=== PATIENT | female | born 1940 | race Caucasian/White ===

== ENCOUNTER → 2017-01-13 | Outpatient (CLI) | payer MEDICARE, OTHER ==
[~2017-01-13] MED LIST: /WARF25TA OR; /WARF5TA OR; ACET65TA OR; ALPR0.5T3 PO; AMBI5TAB PO; ATOR1TAB21 PO; CIPR500T3 PO; DRIS50002 PO; FLAG500T PO; LEVO100T OR; LEVO100T5 PO; LISI40TA OR; MECL12.575 PO; PARO40TA87 PO; PEPC1TAB4 PO; PERC5TAB8 OR; PERC7.5T8 OR; PROZ40CA OR; RANI150C OR; SIMV20TA2 OR; TELM1TAB2 PO; TESS100C PO; TORS20TA2 PO; [UNRECOGNIZED DRUG - CODE] OR
[2017-01-13 19:36] LABS: ALBUMIN 2.2 GM/DL (3.2-5.2); ALBUMIN/GLOBULIN RATIO 0.67 (1.00-1.93); BILIRUBIN,TOTAL 0.5 MG/DL (0.2-1.0); CREATININE FOR GFR 0.97 MG/DL (0.55-1.02); GLOMERULAR FILTRATION RATE 59.3 (>39); POTASSIUM SERUM 3.5 MEQ/L (3.5-5.1); TOTAL PROTEIN 5.5 GM/DL (6.4-8.2)
[2017-01-13 19:39] LABS: BASO % 0.4 % (0.0-1.0); EOS # 0.4 K/mm3 (0.0-0.50); EOS % 3.3 % (0.0-3.0); LYMPH # 2.2 K/mm3 (1.5-4.5); LYMPH % 18.1 % (24.0-44.0); MEAN CORPUSCULAR HEMOGLOBIN 27.5 pg (27.0-33.0); MEAN CORPUSCULAR HGB CONC 31.4 g/dl (32.0-36.5); MEAN CORPUSCULAR VOLUME 87.6 fl (80.0-96.0); MONO # 0.6 K/mm3 (0.0-0.8); NEUTROPHILS # 8.2 K/mm3 (1.8-7.7); NEUTROPHILS % 72.1 % (36.0-66.0); RED CELL DISTRIBUTION WIDTH 14.1 % (11.5-14.5); WHITE BLOOD COUNT 11.3 K/mm3 (4.0-10.0)
== END ==
LOC: M LAB 18:11
PROVIDERS: ATTEND Physician Assistant Medical
DX: R10.84 Generalized abdominal pain (principal)

== ENCOUNTER → 2017-01-17 | Outpatient (CLI) | payer MEDICARE, OTHER ==
[~2017-01-17] MED LIST changes: +GASTROGRAFIN SOLUTION 30ML (Q9963) As Ordered ONE; +ISOVUE-370 76% 100ML VIAL (Q9967) As Ordered ONE
--- NOTE | 2017-01-17 12:04 | REP ---
Clinical: Abdominal pain with physical examination findings to suggest colovesical fistula. Technique: Axial contrast enhanced images from the lung bases to the pubic symphysis using oral and 100 ml Isovue 370 intravenous contrast material with delayed images of the pelvis. Contrast enema was declined. Comparison: 09/10/2016. Findings: Mural thickening and pericolonic stranding with scattered diverticula involves the midsigmoid colon which is inseparable from the bladder and a small focus of nondependent gas is noted within the bladder which is highly suggestive of colovesical fistula given the lack of recent Tamayo catheterization. The remainder of the small and large bowel is grossly unremarkable. Liver, spleen, pancreas, bilateral adrenal glands are normal. Kidneys demonstrate cortical atrophic changes and subcentimeter right renal cyst without hydronephrosis or nephrolithiasis. The gallbladder demonstrates cholelithiasis with subtle inflammatory type changes at the base/neck of the gallbladder (images 46 - 52) which may reflect sequelae of intermittent obstruction and cholecystitis. No obvious pericholecystic fluid, intrahepatic biliary ductal dilatation or obstructing choledocholiths is identified by current CT. The enteric system is as described above. Element of superimposed acute on chronic sigmoid diverticulitis cannot be excluded. The patient is status post hysterectomy. No pelvic fluid or ascites. No free air. No obvious adenopathy. Abdominal aorta is without aneurysm or dissection. Musculoskeletal structures demonstrate degenerative changes. Impression: 1. Acute / chronic inflammatory changes related to sigmoid diverticulitis as described above are inseparable from and contiguous with the bladder along with small amount of gas in the nondependent portion of the bladder is highly suspicious for colovesical fistula. 2. Continued acute on chronic diverticulitis involving the sigmoid colon cannot be excluded. 3. Cholelithiasis and possible sequelae of prior acute cholecystitis may warrant right upper quadrant ultrasound examination. Signed by Jay Marquez MD 01/17/2017 11:55 A
== END ==
LOC: M RAD 08:10
PROVIDERS: ATTEND Physician Assistant Medical
DX: R10.9 Unspecified abdominal pain (principal)
CPT/HCPCS: 74177; Q9963; Q9967

== ENCOUNTER → 2017-02-28 | Outpatient (CLI) | payer MEDICARE, OTHER ==
[~2017-02-28] MED LIST changes: +ALEV220T26 PO; -GASTROGRAFIN SOLUTION 30ML (Q9963) As Ordered ONE; -ISOVUE-370 76% 100ML VIAL (Q9967) As Ordered ONE
[2017-02-28 14:32] LABS: ANION GAP 7 MEQ/L (8-16); BLOOD UREA NITROGEN 17 MG/DL (7-18); CALCIUM LEVEL 8.7 MG/DL (8.8-10.2); CARBON DIOXIDE LEVEL 26 MEQ/L (21-32); CHLORIDE LEVEL 110 MEQ/L (98-107); CREATININE FOR GFR 0.94 MG/DL (0.55-1.02); GLOMERULAR FILTRATION RATE > 60.0 (>39); GLUCOSE, FASTING 109 MG/DL (83-110); POTASSIUM SERUM 4.2 MEQ/L (3.5-5.1); SODIUM LEVEL 143 MEQ/L (136-145)
--- NOTE | 2017-02-28 15:31 | ECGEPIP ---
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 No prior ECG available for comparison at the time of interpretation. Electronically Signed On 02-28-2017 15:31:17 EDT by Kike Saldana
== END ==
LOC: M LAB 13:43
PROVIDERS: ATTEND Surgery
DX: I10 Essential (primary) hypertension (principal)

== ENCOUNTER → 2017-05-10 | Outpatient (REF) | payer MEDICARE, OTHER ==
[2017-05-10 17:59] LABS: INR 1.13
[2017-05-10 18:27] LABS: BASO % 0.4 % (0.0-1.0); EOS # 0.3 K/mm3 (0.0-0.50); EOS % 3.7 % (0.0-3.0); LYMPH # 1.7 K/mm3 (1.5-4.5); LYMPH % 18.9 % (24.0-44.0); MEAN CORPUSCULAR HEMOGLOBIN 29.6 pg (27.0-33.0); MEAN CORPUSCULAR HGB CONC 32.5 g/dl (32.0-36.5); MEAN CORPUSCULAR VOLUME 91.3 fl (80.0-96.0); MONO # 0.5 K/mm3 (0.0-0.8); MONO % 5.9 % (0.0-5.0); NEUTROPHILS # 6.4 K/mm3 (1.8-7.7); NEUTROPHILS % 70.1 % (36.0-66.0); RED CELL DISTRIBUTION WIDTH 13.4 % (11.5-14.5); WHITE BLOOD COUNT 9.1 K/mm3 (4.0-10.0)
[2017-05-10 18:38] LABS: ALBUMIN 3.6 GM/DL (3.2-5.2); ALBUMIN/GLOBULIN RATIO 1.24 (1.00-1.93); BILIRUBIN,TOTAL 0.7 MG/DL (0.2-1.0); CALCIUM LEVEL 8.9 MG/DL (8.8-10.2); CREATININE FOR GFR 1.3 MG/DL (0.55-1.02); GLOMERULAR FILTRATION RATE 42.2 (>39); POTASSIUM SERUM 4.9 MEQ/L (3.5-5.1); TOTAL PROTEIN 6.5 GM/DL (6.4-8.2)
== END ==
LOC: M LABDRAW1 17:02
PROVIDERS: ATTEND Physician Assistant Medical
DX: N32.1 Vesicointestinal fistula (principal)

== ENCOUNTER → 2017-05-10 | Outpatient (CLI) | payer MEDICARE, OTHER ==
--- NOTE | 2017-05-11 08:52 | ECGEPIP ---
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
== END ==
LOC: M EKG 15:17 → M LAB 15:17
PROVIDERS: ATTEND Physician Assistant Medical
DX: Z01.818 Encounter for other preprocedural examination (principal); N32.1 Vesicointestinal fistula

== ENCOUNTER → 2017-05-20 | Outpatient (REF) | payer MEDICARE, OTHER ==
[2017-05-20 13:28] LABS: CALCIUM LEVEL 9.2 MG/DL (8.8-10.2); CREATININE FOR GFR 1.21 MG/DL (0.55-1.02); GLOMERULAR FILTRATION RATE 45.8 (>39); POTASSIUM SERUM 4.6 MEQ/L (3.5-5.1)
== END ==
LOC: M LABDRAW1 12:48
PROVIDERS: ATTEND Physician Assistant Medical
DX: M32.11 Endocarditis in systemic lupus erythematosus (principal)

== ENCOUNTER 2017-06-07 06:25 | Inpatient (IN) | payer MEDICARE, OTHER ==
--- NOTE | 2017-06-06 16:40 | HPE ---
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 Unfortunately, because of family issues, she has been able to pursue a sigmoid colectomy; now presents for additional recommendations. She has does not have any fevers or chills but does still have some air, as well as particulate matter when she urinates. She has not complained of diarrhea or constipation issues. Does have some suprapubic discomfort and pain, but this has been relatively stable. She has been treated with antibiotics multiple times over the last year. Her last CT scan was in December of this year. Most recent complete blood count (CBC) was 9.1. PAST MEDICAL HISTORY: Significant for history of diverticulitis, history of hypercholesterolemia, history of hypertension, a period of anxiety, history of depression, history of thyroid disease, status post hysterectomy, status post knee replacement. Medications include the following: Alprazolam, atorvastatin, Pepcid, Synthroid paroxetine, telmisartan, torsemide, vitamin D and Zolpidem. PHYSICAL EXAMINATION: Reveals a 77-year-old female who looks stated age. HEENT is unremarkable. NECK: Supple without adenopathy. LUNGS: Clear to auscultation without crackles, wheezes or rhonchi. HEART: Regular without murmur. ABDOMEN: Soft, nondistended. She has minimal discomfort in the suprapubic area without significant guarding or rebound. EXTREMITIES: Warm and well-perfused. 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 Since this has been going on, she has been on intermittent antibiotics but has not been on antibiotics until last week when I put her on some prophylactic antibiotics of Cipro, Flagyl over the last week in preparation for this operation to help decrease the likelihood of postoperative infection. At this point, we have plans for a laparoscopic sigmoid colectomy for her. Risks, as well as benefits have been discussed with her at length; those including but not limited to infection, bleeding, damage to surrounding structures including bowel, bladder, nerves, vessels, ureter, kidney, spleen, pancreas and more importantly possibly need for ostomy, as well as possible need for open operative intervention. She understands; and at that this time, would like to proceed with operative intervention, understanding that her risk of perioperative infection is much higher given her enterovesical fistula which by its presence leads to a contaminated field. The patient will have a postoperative Tamayo in place for several days to allow for the enterovesical fistula to resolve. Will plan on a and mechanical, as well as antibiotics bowel prep, make her nothing by mouth, IV fluids, Tamayo catheter, TEDs, sequential perioperatively.
[~2017-06-07] VITALS: Ht 152.4 cm; Wt 77.6 kg
[2017-06-07] VITALS (7 sets, daily range): BP systolic 144–190; BP diastolic 63–88
[~2017-06-07 06:25] MED LIST changes: +LR 1,000 ML IV ONE; +PARO40TA3 PO; -PARO40TA87 PO
[2017-06-07] MEDS ORDERED: ERTAPENEM SODIUM 1 GM in NS MINI-BAG PLUS 50 ML IV ONE ×2 (06:45→12:30)
[2017-06-07] MEDS ORDERED: GLUCAGON FOR INJ 1 MG VIAL (J1610) As Ordered ONE (07:01)
[2017-06-07] MEDS ORDERED: BUPIVACAINE/EPIN 0.25% 30 ML VIAL As Ordered ONE (07:01)
[2017-06-07] MEDS ORDERED: fentaNYL 250 MCG/5 ML INJECTION (J3010) As Ordered ONE (07:19)
[2017-06-07] MEDS ORDERED: MIDAZOLAM INJ 2 MG/2 ML VIAL (J2250) As Ordered ONE (07:19)
[2017-06-07] MEDS ORDERED: PROPOFOL 200 MG/20 ML VIAL As Ordered ONE (07:19)
[2017-06-07] MEDS ORDERED: ROCURONIUM BROMIDE 50 MG/5 ML VIAL/SYRINGE As Ordered ONE ×3 (07:19→09:47)
[2017-06-07] MEDS ORDERED: LIDOCAINE 2% INJ 100 MG/5 ML SDV (FOR ANES.) As Ordered ONE (07:19)
[2017-06-07] MEDS ORDERED: SCOPOLAMINE 1.5 MG TRANSDERMAL As Ordered ONE (07:27)
[2017-06-07] MEDS ORDERED: SCOPOLAMINE 1.5 MG TRANSDERMAL TOP ONE (08:00)
[2017-06-07] MEDS ORDERED: LR 1,000 ML IV ONE (08:00)
[2017-06-07] MEDS ORDERED: dexameTHASONE 4 MG/ML 1ML VIAL (J1100) As Ordered ONE (08:35)
[2017-06-07] MEDS ORDERED: PHENYLephrine HCL 500 MCG/5 ML (100MCG/ML) SYRINGE (J2370) As Ordered ONE (08:52)
[2017-06-07] MEDS ORDERED: ePHEDrine SULFATE 25 MG/5 ML(5MG/ML) SYRINGE As Ordered ONE ×2 (08:52→11:22)
[2017-06-07] MEDS ORDERED: NEOSTIGMINE 1MG/ML 5 ML SYRINGE (J2710) As Ordered ONE (08:52)
[2017-06-07] MEDS ORDERED: GLYCOPYRROLATE INJ 0.2 MG/ML 2 ML VIAL As Ordered ONE (08:52)
[2017-06-07] MEDS ORDERED: HYDROmorphone HCL 2 MG/ML 1ML VIAL (J1170) As Ordered ONE (08:52)
[2017-06-07] MEDS ORDERED: LABETALOL HCL 100 MG/20 ML VIAL As Ordered ONE (08:59)
[2017-06-07] MEDS ORDERED: BUPIVACAINE LIPOSOME/PF 1.3% 20 ML VIAL (13.3MG/ML)(EXPAREL) As Ordered ONE (11:53)
[2017-06-07] MEDS ORDERED: BUPIVACAINE HCL 0.25% 30 ML VIAL As Ordered ONE (11:53)
[2017-06-07] MEDS ORDERED: SUGAMMADEX SODIUM 500 MG/5 ML VIAL (BRIDION) As Ordered ONE (11:59)
[2017-06-07] MEDS ORDERED: zolPIDEM TARTRATE 10MG TAB PO PRN (12:30)
[2017-06-07] MEDS ORDERED: HYDROmorphone HCL 1 MG/ML SYRINGE (J1170) IV PRN (12:30)
[2017-06-07] MEDS ORDERED: IPRATROPIUM 0.5MG/ALBUTEROL 2.5MG INH SOL UD 3ML (DUONEB)(J7620) NEB PRN (12:30)
[2017-06-07] MEDS ORDERED: METOCLOPRAMIDE INJ 10MG/2ML VIAL (J2765) IV PRN ×2 (12:30→13:00)
[2017-06-07] MEDS ORDERED: PROMETHAZINE INJ 25 MG/ML VIAL (J2550) IV PRN (12:30)
[2017-06-07] MEDS: HYDROmorphone HCL 1 MG/ML SYRINGE (J1170) IV PRN ×7 (12:45→23:14)
[2017-06-07] MEDS ORDERED: ONDANSETRON 4MG/2ML VIAL (J2405) IV PRN (13:00)
[2017-06-07] MEDS: IPRATROPIUM 0.5MG/ALBUTEROL 2.5MG INH SOL UD 3ML (DUONEB)(J7620) NEB SCH ×2 (14:00→20:00)
[2017-06-07] MEDS: ALVIMOPAN 12 MG CAPSULE (ENTEREG) PO SCH ×3 (15:33→20:27)
[2017-06-07] MEDS: LR 80 ML IV SCH (15:34)
[2017-06-07] MEDS: LR 1,000 ML IV SCH ×2 (15:34→18:06)
[2017-06-07] MEDS: PANTOPRAZOLE 40MG INJ (PROTONIX) (C9113) IV SCH (16:02)
[2017-06-07] MEDS: ONDANSETRON 4MG/2ML VIAL (J2405) IV PRN (20:11)
[2017-06-08] MEDS: IPRATROPIUM 0.5MG/ALBUTEROL 2.5MG INH SOL UD 3ML (DUONEB)(J7620) NEB SCH ×4 (01:40→19:36)
[2017-06-08 02:00] VITALS: BP 160/71
[2017-06-08] MEDS: LR 1,000 ML IV SCH ×4 (03:35→23:43)
[2017-06-08 05:35] LABS: MEAN CORPUSCULAR HEMOGLOBIN 29.5 pg (27.0-33.0); MEAN CORPUSCULAR HGB CONC 33.8 g/dl (32.0-36.5); MEAN CORPUSCULAR VOLUME 87.2 fl (80.0-96.0); RED CELL DISTRIBUTION WIDTH 13.9 % (11.5-14.5); WHITE BLOOD COUNT 20.5 K/mm3 (4.0-10.0)
[2017-06-08 05:45] LABS: CALCIUM LEVEL 8.1 MG/DL (8.8-10.2); CREATININE FOR GFR 1.51 MG/DL (0.55-1.02); GLOMERULAR FILTRATION RATE 35.5 (>39); POTASSIUM SERUM 3.6 MEQ/L (3.5-5.1)
[2017-06-08 06:00] VITALS: BP 164/72
[2017-06-08] MEDS: ONDANSETRON 4MG/2ML VIAL (J2405) IV PRN (06:53)
--- NOTE | 2017-06-08 07:49 | RO ---
DATE OF PROCEDURE: 06/07/2017 PREOPERATIVE DIAGNOSIS: Diverticulosis. POSTOPERATIVE DIAGNOSIS: Diverticulosis. SURGERY PERFORMED: Cystoscopy, plus bilateral ureteral stent placements, 5-[place] Pollack catheters. SURGEON: Braden Tolentino MD UNIFIED COMMUNICATIONS ARCHITECT: None. ANESTHESIA: General. FINDINGS: Normal bladder with bilateral ureters. Ureteral orifices patent. COMPLICATIONS: None. ESTIMATED BLOOD LOSS: N/A. HISTORY OF PRESENT ILLNESS: 77-year-old female patient with a history of diverticulosis, diverticulitis and a colovesical fistula. For this reason, she is being taken to the operating room (OR) for a colon resection and laparoscopic colectomy. We were consulted for placing bilateral ureteral stents. For this reason, she was consented for cystoscopy, plus bilateral ureteral stent placement prior to the laparoscopic colectomy. PROCEDURE DESCRIPTION: In a patient under general anesthesia in supine modified low lithotomy position after prepping and draping the area of concern, which included the entire genitalia and abdomen, we started by introducing a cystoscope, 21-[place] in diameter with 30-degree lens. The urethra and bladder neck were totally normal. The bladder had no tumors, no stones, no foreign objects. Both ureteral orifices were seen and patent. We passed a 5-[place] Pollack catheter toward the right ureteral orifice and it loaded up easily up to the kidney. We then removed the cystoscope, left the Pollack catheter behind and then reintroduced the cystoscope through the urethra, identified the left ureteral orifice and passed another 5-Pollack catheter up to the kidney. We then removed the cystoscope and passed a 16-[place] Tamayo catheter and placed the balloon to 10 mL. We then connected the ureteral catheter connectors and then ligated both Pollack catheters to the Tamayo catheter to actively secure them in position so they do not move. This patient has a Tamayo catheter tube drainage bag and two Pollack catheters draining to a connector and draining to a bag. PLAN: The patient will be now having surgery for her diverticulosis and vesicle colonic fistula laparoscopically by Dr. Shabazz. After the procedure, he will take the Pollack catheters out.
[2017-06-08] MEDS ORDERED: BENZONATATE 100 MG CAP PO PRN (08:30)
[2017-06-08] MEDS ORDERED: ALPRAZolam 0.5 MG TAB PO PRN (08:30)
[2017-06-08] MEDS: PANTOPRAZOLE 40MG INJ (PROTONIX) (C9113) IV SCH (08:32)
[2017-06-08] MEDS: FAMOTIDINE 20 MG TAB PO SCH ×2 (08:33→21:33)
[2017-06-08] MEDS: ATORVASTATIN 20 MG TAB PO SCH (08:33)
[2017-06-08] MEDS: LEVOTHYROXINE 100MCG TABLET (0.1MG) PO SCH (08:33)
[2017-06-08] MEDS: ALVIMOPAN 12 MG CAPSULE (ENTEREG) PO SCH ×2 (08:35→21:00)
[2017-06-08 14:00] VITALS: BP 145/76
[2017-06-08] MEDS: HYDROmorphone HCL 1 MG/ML SYRINGE (J1170) IV PRN (17:22)
[2017-06-08 18:00] VITALS: BP 144/70
[2017-06-08] MEDS: TELMISARTAN 20 MG TAB PO SCH (21:34)
[2017-06-08 22:00] VITALS: BP 169/77
[2017-06-09] MEDS: IPRATROPIUM 0.5MG/ALBUTEROL 2.5MG INH SOL UD 3ML (DUONEB)(J7620) NEB SCH ×4 (01:25→20:00)
[2017-06-09 06:00] VITALS: BP 145/70
[2017-06-09] MEDS: LEVOTHYROXINE 100MCG TABLET (0.1MG) PO SCH (06:06)
[2017-06-09 06:13] LABS: MEAN CORPUSCULAR HEMOGLOBIN 28.9 pg (27.0-33.0); MEAN CORPUSCULAR HGB CONC 33.4 g/dl (32.0-36.5); MEAN CORPUSCULAR VOLUME 86.5 fl (80.0-96.0); RED CELL DISTRIBUTION WIDTH 13.7 % (11.5-14.5); WHITE BLOOD COUNT 16.6 K/mm3 (4.0-10.0)
[2017-06-09 06:27] LABS: CALCIUM LEVEL 7.9 MG/DL (8.8-10.2); CREATININE FOR GFR 1.25 MG/DL (0.55-1.02); GLOMERULAR FILTRATION RATE 44.1 (>39); POTASSIUM SERUM 3.3 MEQ/L (3.5-5.1)
[2017-06-09] MEDS: LR 1,000 ML IV SCH (06:48)
[2017-06-09] MEDS: ATORVASTATIN 20 MG TAB PO SCH (08:32)
[2017-06-09] MEDS: PANTOPRAZOLE 40MG INJ (PROTONIX) (C9113) IV SCH (08:33)
[2017-06-09] MEDS: FAMOTIDINE 20 MG TAB PO SCH ×2 (08:33→21:01)
[2017-06-09] MEDS: ALVIMOPAN 12 MG CAPSULE (ENTEREG) PO SCH ×2 (08:34→21:00)
[2017-06-09 10:00] VITALS: BP 145/68
[2017-06-09] MEDS: ERTAPENEM SODIUM 1 GM in NS MINI-BAG PLUS 50 ML IV SCH (11:52)
[2017-06-09 14:00] VITALS: BP 140/63
[2017-06-09 18:00] VITALS: BP 145/66
[2017-06-09] MEDS: TELMISARTAN 20 MG TAB PO SCH (21:01)
[2017-06-09 22:00] VITALS: BP 124/60
[2017-06-10 02:00] VITALS: BP 134/60
[2017-06-10] MEDS: IPRATROPIUM 0.5MG/ALBUTEROL 2.5MG INH SOL UD 3ML (DUONEB)(J7620) NEB SCH ×2 (02:00→08:00)
[2017-06-10] MEDS: LEVOTHYROXINE 100MCG TABLET (0.1MG) PO SCH (05:49)
[2017-06-10 06:00] VITALS: BP 144/62
[2017-06-10 06:33] LABS: MEAN CORPUSCULAR HEMOGLOBIN 28.6 pg (27.0-33.0); MEAN CORPUSCULAR VOLUME 86.8 fl (80.0-96.0); RED CELL DISTRIBUTION WIDTH 13.8 % (11.5-14.5); WHITE BLOOD COUNT 15.9 K/mm3 (4.0-10.0)
[2017-06-10 06:52] LABS: CALCIUM LEVEL 7.7 MG/DL (8.8-10.2); CREATININE FOR GFR 1.05 MG/DL (0.55-1.02); POTASSIUM SERUM 3.3 MEQ/L (3.5-5.1)
[2017-06-10] MEDS: PANTOPRAZOLE 40MG INJ (PROTONIX) (C9113) IV SCH (07:36)
[2017-06-10] MEDS: FAMOTIDINE 20 MG TAB PO SCH ×2 (07:37→20:20)
[2017-06-10] MEDS: ATORVASTATIN 20 MG TAB PO SCH (07:37)
[2017-06-10] MEDS: ALVIMOPAN 12 MG CAPSULE (ENTEREG) PO SCH ×2 (07:37→20:21)
[2017-06-10] MEDS ORDERED: ACETAMINOPHEN TAB 650MG DOSE (2X325MG) PO PRN (11:45)
[2017-06-10] MEDS: ERTAPENEM SODIUM 1 GM in NS MINI-BAG PLUS 50 ML IV SCH (11:46)
[2017-06-10] MEDS: MECLIZINE 12.5 MG TAB PO PRN (12:27)
[2017-06-10] MEDS: TELMISARTAN 20 MG TAB PO SCH (20:20)
[2017-06-10 22:00] VITALS: BP 171/66
[2017-06-11] MEDS: LEVOTHYROXINE 100MCG TABLET (0.1MG) PO SCH (05:40)
[2017-06-11 06:00] VITALS: BP 132/69
[2017-06-11 06:27] LABS: MEAN CORPUSCULAR HEMOGLOBIN 29.3 pg (27.0-33.0); MEAN CORPUSCULAR HGB CONC 33.5 g/dl (32.0-36.5); MEAN CORPUSCULAR VOLUME 87.6 fl (80.0-96.0); RED CELL DISTRIBUTION WIDTH 13.9 % (11.5-14.5); WHITE BLOOD COUNT 14.8 K/mm3 (4.0-10.0)
[2017-06-11 06:42] LABS: CALCIUM LEVEL 7.9 MG/DL (8.8-10.2); GLOMERULAR FILTRATION RATE 57.1 (>39); POTASSIUM SERUM 3.3 MEQ/L (3.5-5.1)
[2017-06-11] MEDS: ALVIMOPAN 12 MG CAPSULE (ENTEREG) PO SCH ×2 (08:29→20:04)
[2017-06-11] MEDS: PANTOPRAZOLE 40MG INJ (PROTONIX) (C9113) IV SCH (08:29)
[2017-06-11] MEDS: FAMOTIDINE 20 MG TAB PO SCH ×2 (08:29→20:04)
[2017-06-11] MEDS: ATORVASTATIN 20 MG TAB PO SCH (08:29)
[2017-06-11] MEDS: MECLIZINE 12.5 MG TAB PO PRN (10:53)
[2017-06-11] MEDS: ERTAPENEM SODIUM 1 GM in NS MINI-BAG PLUS 50 ML IV SCH (10:56)
[2017-06-11 14:00] VITALS: BP 172/76
[2017-06-11] MEDS: TELMISARTAN 20 MG TAB PO SCH (20:04)
[2017-06-11 22:00] VITALS: BP 180/76
[2017-06-12] MEDS: LEVOTHYROXINE 100MCG TABLET (0.1MG) PO SCH (05:34)
[2017-06-12 06:00] VITALS: BP 175/72
[2017-06-12 06:23] LABS: MEAN CORPUSCULAR HEMOGLOBIN 28.9 pg (27.0-33.0); MEAN CORPUSCULAR HGB CONC 32.9 g/dl (32.0-36.5); MEAN CORPUSCULAR VOLUME 87.9 fl (80.0-96.0); RED CELL DISTRIBUTION WIDTH 13.8 % (11.5-14.5); WHITE BLOOD COUNT 15.7 K/mm3 (4.0-10.0)
[2017-06-12 06:40] LABS: ANION GAP 9 MEQ/L (8-16); BLOOD UREA NITROGEN 15 MG/DL (7-18); CALCIUM LEVEL 7.7 MG/DL (8.8-10.2); CARBON DIOXIDE LEVEL 22 MEQ/L (21-32); CHLORIDE LEVEL 114 MEQ/L (98-107); CREATININE FOR GFR 0.94 MG/DL (0.55-1.02); GLOMERULAR FILTRATION RATE > 60.0 (>39); GLUCOSE, FASTING 104 MG/DL (83-110); POTASSIUM SERUM 3.3 MEQ/L (3.5-5.1); SODIUM LEVEL 145 MEQ/L (136-145)
[2017-06-12] MEDS: FAMOTIDINE 20 MG TAB PO SCH (08:43)
[2017-06-12] MEDS: PANTOPRAZOLE 40MG INJ (PROTONIX) (C9113) IV SCH (08:43)
[2017-06-12] MEDS: ATORVASTATIN 20 MG TAB PO SCH (08:43)
[2017-06-12] MEDS: ALVIMOPAN 12 MG CAPSULE (ENTEREG) PO SCH (08:43)
[2017-06-12] MEDS ORDERED: FLUCONAZOLE 50MG TABLET PO SCH (09:00)
[2017-06-12] MEDS ORDERED: CIPR-249 PO (10:12)
[2017-06-12] MEDS: ERTAPENEM SODIUM 1 GM in NS MINI-BAG PLUS 50 ML IV SCH (11:00)
--- NOTE | 2017-06-30 19:23 | DSES ---
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 ASSOCIATED DIAGNOSES: History of diverticulitis, history of hypercholesterolemia, history of hypertension, history of anxiety, history of hypothyroidism, history of hysterectomy, history of knee replacement. PROCEDURES PERFORMED: Diagnostic laparoscopy with laparoscopic lysis of adhesions, open sigmoid colectomy with coloproctostomy (LAR) and small bowel resection. HISTORY OF PRESENT ILLNESS: The patient is a 77-year-old white female has had a colonoscopy fistula for quite a while now and now presents for reversal / excision of this sigmoid colon. HOSPITAL COURSE SUMMARY: The patient was admitted with the above diagnosis, was taken to the operating room and underwent colonic resection and an anastomosis, in addition, a portion of small bowel was resected at this time. Postoperatively she did quite well, had good pain relief with pain medication, as well as with the Exparel that was placed in her incision. She seemed to have good response to this, as well as the OPERATIONAL INTELLIGENCE OFFICER that she was placed on originally. Eventually she has made some good progress and was progressed in her diet. When she was started on a regular diet. Her activity level seem to create increased quite nicely, and then eventually on the day of discharge her Tamayo catheter was removed anticipating, given that she had no leak into her peritoneal cavity, no significant fluid leak and her abdominal cavity, that this colovesical fistula /hole in the bladder had sealed itself. The patient was discharged home with Cipro 500 mg by mouth twice a day for another week given this longstanding fistula and continued on her usual medications, which could include alprazolam, atorvastatin, Tessalon Perles, Pepcid, Synthroid, meclizine, Aleve, paroxetine, telmisartan, torsemide, vitamin D and Ambien. She was to follow up in my office in 1 week for staple removal, in 2 weeks for reevaluation.
--- NOTE | 2017-07-01 06:42 | RO ---
DATE OF PROCEDURE: 06/07/2017 PREOPERATIVE DIAGNOSIS: Colovesical fistula secondary to perforated diverticulitis. POSTOPERATIVE DIAGNOSIS: Colovesical fistula secondary to perforated diverticulitis. POSTOPERATIVE DIAGNOSIS: 1. Laparoscopic lysis of adhesions. 2. Open low anterior resection (with coloproctostomy). 3. Small bowel resection. SURGEON: Randal Shabazz MD CARTOGRAPHIC TECHNICIAN: Dr. Hope (Dr. Hope provided retraction, exposure and assistance with the anastomosis. ANESTHESIA: ESTIMATED BLOOD LOSS: 250 mL. FLUIDS: Crystalloid. Tamayo and Tevin-Mehta drains were left. DESCRIPTION OF PROCEDURE: The patient was taken operating room, was given general anesthesia. After adequate anesthesia and preoperative antibiotics were given, the patient was prepped and draped in usual sterile fashion. Next, a supraumbilical incision was made with skin knife. Blunt dissection was carried down to fascia. The fascia was grasped with Sebastien clamps, elevated and a Veress needle placed into the abdominal cavity insufflated to 15 mm of pressure. A dilating 10 mm trocar was placed at this time and under direct visualization a right lateral 5 mm and 12 mm right lower quadrant trocars were placed. There were numerous adhesions along the midline, which were taken down with Harmonic scalpel and some in the left lower quadrant, which were taken down by Harmonic scalpel. Next, the two 5 mm trocars were placed on the left-hand side under laparoscopic guidance and there were numerous adhesions of the small bowel to the omentum, which were taken down at this point. Eventually, once most of these adhesions were down, the majority of the inflammation/thickened tissue was right where the colovesical fistula was in the pelvis. What was noticeable was there was small bowel adherent to this fistula and also the rectum distal to this appeared to be normal without any significant abnormalities. Despite dissecting with the Harmonic scalpel for quite awhile and adhesions were taken down for as much as possible, the small bowel that was adherent on the colon was not able to be mobilized without concerns of serosal tears and more so, the colon itself was entered where the fistula tract appeared to be. Given this open area and the relatively significant adhesions and very thick adhesions in this area, I felt an open approach would be better for the sigmoid resection. Thus, an open laparotomy was performed next. A midline incision was made with skin knife. Electrocautery was used cut through dermis, underlying subcutaneous tissue. Once the abdomen was opened widely, a Bookwalter retractor was used to provide adequate exposure and the sigmoid colon was mobilized off the pelvic sidewall. This had been previously mobilized to some extent down to the area of the inflammatory process on the left pelvic sidewall, but the rest of this was able to be performed with some blunt dissection as well as the electrocautery. Once this was able to be mobilized off the pelvic sidewall and off the anterior/bladder area, the rectum seem to be mobilized much nicer and this area was soft distal to this inflammatory mass. The small bowel, which had been taken off the excess/inflammatory process, had some matted areas and serosal tears that probably made up a previous abscess cavity wall, and I felt it would be best off being resected as well. The small bowel was resected at the end of the case with the typical GIAs for the bowel itself to resect the bowel. [place] vascular loads for the mesentery and a [id number] anastomosis was created with a CHAUNCEY stapler and the end of the enterotomy was taken with a CHAUNCEY stapler. The colon itself was transected using a CHAUNCEY stapler. The mesentery of the colon and the sigmoid vessels and the rectal branch of the sigmoid was taken with [place] vascular loads distal to this inflammatory mass. Once I was able to get distal to all this inflammatory mass, the bowel was transected using the contour stapler. Then, an end-to-end anastomosis with an EEA stapler was performed. This was placed under water and revealed good air flow through the anastomosis without evidence of leak. The abdomen was copiously irrigated until clear and then using a separate tray for closure this was closed with a looped PDS. Tevin-Mehta drain was left in the bed of the dissection and the midline was loosely approximated with hari. Dry sterile dressing was applied. The patient was awakened from her anesthesia, extubated, brought to the recovery room awake, alert, hemodynamically stable.
== END 2017-06-12 13:15 | disposition home or self-care (01) | DRG 330 ==
LOC: M OR 06:25 → M MS5PR 14:00
PROVIDERS: ADMIT Surgery; ATTEND Surgery
PROC: 0DBN0ZZ Excision of Sigmoid Colon, Open Approach (ICD-10-PCS; 2017-06-07)
PROC: 0DB80ZZ Excision of Small Intestine, Open Approach (ICD-10-PCS; principal; 2017-06-07 07:30)
PROC: 0DN84ZZ Release Small Intestine, Percutaneous Endoscopic Approach (ICD-10-PCS; 2017-06-07 07:30)
DX: K57.20 Diverticulitis of large intestine with perforation and abscess without bleeding (principal); N32.1 Vesicointestinal fistula; I10 Essential (primary) hypertension; E03.9 Hypothyroidism, unspecified; E78.00 Pure hypercholesterolemia, unspecified; Z79.899 Other long term (current) drug therapy

== ENCOUNTER → 2017-07-11 | Outpatient (REF) | payer MEDICARE, OTHER ==
[~2017-07-11] MED LIST changes: +CIPR-249 PO; -LR 1,000 ML IV ONE
== END ==
LOC: M LAB REF 13:55
PROVIDERS: ATTEND Surgery
DX: N32.2 Vesical fistula, not elsewhere classified (principal); K57.32 Diverticulitis of large intestine without perforation or abscess without bleeding

== ENCOUNTER → 2017-10-22 | Outpatient (REF) | payer MEDICARE, OTHER ==
[2017-10-22 16:27] LABS: BASO # 0.1 10^3/uL (0.0-0.2); BASO % 0.6 % (0.0-1.0); EOS # 0.3 10^3/uL (0.0-0.50); IMMATURE GRANULOCYTE % 0.4 % (0-0); LYMPH # 2.1 10^3/uL (1.5-4.5); LYMPH % 25.8 % (24.0-44.0); MEAN CORPUSCULAR HEMOGLOBIN 26.7 pg (27.0-33.0); MEAN CORPUSCULAR HGB CONC 30.9 g/dl (32.0-36.5); MEAN CORPUSCULAR VOLUME 86.4 fl (80.0-96.0); MONO # 0.5 10^3/uL (0.0-0.8); NEUTROPHILS # 5.3 10^3/uL (1.8-7.7); NEUTROPHILS % 64.2 % (36.0-66.0); PLATELET COUNT, AUTOMATED 190 10^3/uL (150-450); RED CELL DISTRIBUTION WIDTH 14.5 % (11.5-14.5); WHITE BLOOD COUNT 8.3 10^3/uL (4.0-10.0)
[2017-10-22 16:35] LABS: ALBUMIN 3.9 GM/DL (3.2-5.2); ALBUMIN/GLOBULIN RATIO 1.39 (1.00-1.93); ALKALINE PHOSPHATASE 107 U/L (45-117); ALT/SGPT 13 U/L (12-78); ANION GAP 8 MEQ/L (8-16); AST/SGOT 15 U/L (7-37); BILIRUBIN,TOTAL 0.9 MG/DL (0.2-1.0); BLOOD UREA NITROGEN 13 MG/DL (7-18); CALCIUM LEVEL 8.8 MG/DL (8.8-10.2); CARBON DIOXIDE LEVEL 28 MEQ/L (21-32); CHLORIDE LEVEL 107 MEQ/L (98-107); CHOLESTEROL LEVEL 130 MG/DL (<200); CREATININE FOR GFR 0.88 MG/DL (0.55-1.02); GLOMERULAR FILTRATION RATE > 60.0 (>39); GLUCOSE, FASTING 87 MG/DL (83-110); POTASSIUM SERUM 4.3 MEQ/L (3.5-5.1); SODIUM LEVEL 143 MEQ/L (136-145); TOTAL PROTEIN 6.7 GM/DL (6.4-8.2); TRIGLYCERIDES LEVEL 95 MG/DL (<150)
== END ==
LOC: M LABDRAW1 14:43
PROVIDERS: ATTEND Physician Assistant Medical
DX: E78.2 Mixed hyperlipidemia (principal); E03.9 Hypothyroidism, unspecified; E55.9 Vitamin D deficiency, unspecified

== ENCOUNTER → 2017-12-09 | Outpatient (REF) | payer MEDICARE, OTHER ==
[2017-12-09 13:34] LABS: BASO % 0.4 % (0.0-1.0); EOS # 0.2 10^3/uL (0.0-0.50); EOS % 2.3 % (0.0-3.0); HEMOGLOBIN 12.2 g/dl (12.0-16.0); IMMATURE GRANULOCYTE % 0.3 % (0-0); LYMPH # 1.5 10^3/uL (1.5-4.5); LYMPH % 21.7 % (24.0-44.0); MEAN CORPUSCULAR HEMOGLOBIN 26.8 pg (27.0-33.0); MEAN CORPUSCULAR HGB CONC 31.3 g/dl (32.0-36.5); MEAN CORPUSCULAR VOLUME 85.5 fl (80.0-96.0); MONO # 0.4 10^3/uL (0.0-0.8); MONO % 6.1 % (0.0-5.0); NEUTROPHILS # 4.8 10^3/uL (1.8-7.7); NEUTROPHILS % 69.2 % (36.0-66.0); PLATELET COUNT, AUTOMATED 162 10^3/uL (150-450); RED BLOOD COUNT 4.56 10^6/uL (4.00-5.40); WHITE BLOOD COUNT 6.9 10^3/uL (4.0-10.0)
[2017-12-09 14:19] LABS: ANION GAP 7 MEQ/L (8-16); BLOOD UREA NITROGEN 14 MG/DL (7-18); CALCIUM LEVEL 8.6 MG/DL (8.8-10.2); CARBON DIOXIDE LEVEL 27 MEQ/L (21-32); CHLORIDE LEVEL 109 MEQ/L (98-107); CREATININE FOR GFR 0.87 MG/DL (0.55-1.02); FERRITIN 36 NG/ML (8-252); FREE T4 1.26 NG/DL (0.76-1.46); GLOMERULAR FILTRATION RATE > 60.0 (>39); GLUCOSE, FASTING 94 MG/DL (83-110); IRON (FE) 60 UG/DL (50-170); POTASSIUM SERUM 4.5 MEQ/L (3.5-5.1); SODIUM LEVEL 143 MEQ/L (136-145)
[2017-12-09 14:20] LABS: FOLATE 14.9 NG/ML; VITAMIN B12 LEVEL 232 PG/ML
== END ==
LOC: M LABDRAW1 13:14
DX: R53.83 Other fatigue (principal)
CPT/HCPCS: 82746

== ENCOUNTER → 2018-01-23 | Outpatient (REF) | payer MEDICARE, OTHER | LOC: M LAB REF 19:34 | DX: N39.0 Urinary tract infection, site not specified (principal) | CPT/HCPCS: 87186 ==

== ENCOUNTER → 2018-02-12 | Outpatient (REF) | payer MEDICARE, OTHER | LOC: M LAB REF 13:46 | DX: R30.0 Dysuria (principal) | CPT/HCPCS: 87088; 87186 ==

== ENCOUNTER → 2018-02-21 | Outpatient (REF) | payer MEDICARE, OTHER | LOC: M SFHCSACK 19:04 | DX: N39.0 Urinary tract infection, site not specified (principal) | CPT/HCPCS: 87086 ==

== ENCOUNTER → 2018-03-07 | Outpatient (CLI) | payer MEDICARE, OTHER | LOC: M RAD 11:04 | DX: R32 Unspecified urinary incontinence (principal) | CPT/HCPCS: 74018 ==

== ENCOUNTER → 2018-06-05 | Outpatient (REF) | payer MEDICARE, OTHER ==
[2018-06-05 19:22] LABS: BASO # 0.1 10^3/uL (0.0-0.2); BASO % 0.6 % (0.0-1.0); EOS # 0.3 10^3/uL (0.0-0.50); EOS % 4.1 % (0.0-3.0); HEMATOCRIT 37.7 % (36.0-47.0); IMMATURE GRANULOCYTE % 0.5 % (0-3.0); LYMPH # 2.1 10^3/uL (1.5-4.5); MEAN CORPUSCULAR HEMOGLOBIN 28.2 pg (27.0-33.0); MEAN CORPUSCULAR HGB CONC 31.8 g/dl (32.0-36.5); MEAN CORPUSCULAR VOLUME 88.5 fl (80.0-96.0); MONO # 0.6 10^3/uL (0.0-0.8); NEUTROPHILS # 5.2 10^3/uL (1.8-7.7); NEUTROPHILS % 62.8 % (36.0-66.0); PLATELET COUNT, AUTOMATED 164 10^3/uL (150-450); RED BLOOD COUNT 4.26 10^6/uL (4.00-5.40); RED CELL DISTRIBUTION WIDTH 13.8 % (11.5-14.5); WHITE BLOOD COUNT 8.2 10^3/uL (4.0-10.0)
[2018-06-05 19:30] LABS: ALBUMIN 3.5 GM/DL (3.2-5.2); ALBUMIN/GLOBULIN RATIO 1.25 (1.00-1.93); ALKALINE PHOSPHATASE 123 U/L (45-117); ALT/SGPT 15 U/L (12-78); ANION GAP 10 MEQ/L (8-16); AST/SGOT 16 U/L (7-37); BILIRUBIN,TOTAL 0.8 MG/DL (0.2-1.0); BLOOD UREA NITROGEN 16 MG/DL (7-18); CARBON DIOXIDE LEVEL 25 MEQ/L (21-32); CHLORIDE LEVEL 110 MEQ/L (98-107); CHOLESTEROL LEVEL 128 MG/DL (<200); CHOLESTEROL RISK RATIO 2.327 (<5); FREE T4 1.29 NG/DL (0.76-1.46); GLOMERULAR FILTRATION RATE 56.9 (>39); GLUCOSE, FASTING 91 MG/DL (70-100); HDL CHOLESTEROL 55 MG/DL (>40); LDL CHOLESTEROL 54.2 MG/DL (<100); NON-HDL-C 73 MG/DL; POTASSIUM SERUM 4.5 MEQ/L (3.5-5.1); SODIUM LEVEL 145 MEQ/L (136-145); THYROID STIMULATING HORMONE 0.654 uIU/ML (0.358-3.740); TOTAL PROTEIN 6.3 GM/DL (6.4-8.2); TRIGLYCERIDES LEVEL 94 MG/DL (<150)
[2018-06-05 22:28] LABS: TOTAL 25(OH) VITAMIN D 77.9 NG/ML (30.0-100.0)
== END ==
LOC: M SFHCADAM 14:21
DX: I10 Essential (primary) hypertension (principal); E78.2 Mixed hyperlipidemia; E03.9 Hypothyroidism, unspecified; Z13.29 Encounter for screening for other suspected endocrine disorder
CPT/HCPCS: 84443

== ENCOUNTER → 2019-01-23 | Outpatient (REF) | payer MEDICARE, OTHER ==
[~2019-01-23] MED LIST changes: -DRIS50002 PO; +DRIS50003 PO; -PEPC1TAB4 PO; +PEPC1TAB5 PO; -TELM1TAB2 PO; +TELM1TAB37 PO
[2019-01-23 14:16] LABS: BASO # 0.1 10^3/uL (0.0-0.2); BASO % 0.6 % (0.0-1.0); EOS # 0.3 10^3/uL (0.0-0.50); EOS % 3.2 % (0.0-3.0); HEMATOCRIT 40.5 % (36.0-47.0); HEMOGLOBIN 12.8 g/dl (12.0-15.5); LYMPH # 1.7 10^3/uL (1.5-4.5); LYMPH % 18.7 % (24.0-44.0); MEAN CORPUSCULAR HEMOGLOBIN 27.9 pg (27.0-33.0); MEAN CORPUSCULAR HGB CONC 31.6 g/dl (32.0-36.5); MEAN CORPUSCULAR VOLUME 88.2 fl (80.0-96.0); MONO # 0.5 10^3/uL (0.0-0.8); MONO % 5.7 % (0.0-5.0); NEUTROPHILS # 6.5 10^3/uL (1.8-7.7); NEUTROPHILS % 71.2 % (36.0-66.0); PLATELET COUNT, AUTOMATED 158 10^3/uL (150-450); RED BLOOD COUNT 4.59 10^6/uL (4.00-5.40); WHITE BLOOD COUNT 9.1 10^3/uL (4.0-10.0)
[2019-01-23 14:26] LABS: ALBUMIN 3.5 GM/DL (3.2-5.2); BILIRUBIN,TOTAL 0.9 MG/DL (0.2-1.0); CHOLESTEROL RISK RATIO 3.065 (<5); FREE T4 1.25 NG/DL (0.76-1.46); GLOMERULAR FILTRATION RATE 56.9 (>39); POTASSIUM SERUM 4.6 MEQ/L (3.5-5.1); THYROID STIMULATING HORMONE 2.17 uIU/ML (0.358-3.740); TOTAL PROTEIN 6.2 GM/DL (6.4-8.2)
== END ==
LOC: M SFHCSACK 08:05
PROVIDERS: ATTEND Physician Assistant
DX: I10 Essential (primary) hypertension (principal); E78.2 Mixed hyperlipidemia; E03.9 Hypothyroidism, unspecified; E55.9 Vitamin D deficiency, unspecified

== ENCOUNTER → 2019-08-06 | Outpatient (REF) | payer MEDICARE, OTHER ==
[~2019-08-06] MED LIST changes: -/WARF25TA OR; -/WARF5TA OR; +COUM1TAB17 OR; +COUM1TAB18 OR
[2019-08-06 15:05] LABS: BASO # 0.1 10^3/uL (0.0-0.2); BASO % 0.7 % (0.0-1.0); EOS # 0.4 10^3/uL (0.0-0.5); EOS % 4.6 % (0.0-3.0); HEMOGLOBIN 12.4 g/dl (12.0-15.5); LYMPH # 1.9 10^3/uL (1.5-5.0); LYMPH % 21.3 % (24.0-44.0); MEAN CORPUSCULAR HEMOGLOBIN 28.9 pg (27.0-33.0); MEAN CORPUSCULAR HGB CONC 31.8 g/dl (32.0-36.5); MEAN CORPUSCULAR VOLUME 90.9 fl (80.0-96.0); MONO # 0.6 10^3/uL (0.0-0.8); MONO % 6.5 % (0.0-5.0); NEUTROPHILS # 5.9 10^3/uL (1.5-8.5); NEUTROPHILS % 66.1 % (36.0-66.0); PLATELET COUNT, AUTOMATED 156 10^3/uL (150-450); RED BLOOD COUNT 4.29 10^6/uL (4.00-5.40); WHITE BLOOD COUNT 8.9 10^3/uL (4.0-10.0)
[2019-08-06 15:42] LABS: ALBUMIN 3.6 GM/DL (3.2-5.2); BILIRUBIN,TOTAL 0.7 MG/DL (0.2-1.0); CALCIUM LEVEL 8.8 MG/DL (8.8-10.2); CHOLESTEROL RISK RATIO 2.818 (<5); CREATININE FOR GFR 1.67 MG/DL (0.55-1.30); FREE T4 1.4 NG/DL (0.76-1.46); GLOMERULAR FILTRATION RATE 31.4 (>32); POTASSIUM SERUM 5.1 MEQ/L (3.5-5.1); THYROID STIMULATING HORMONE 1.52 uIU/ML (0.358-3.740); TOTAL 25(OH) VITAMIN D 63.4 NG/ML (30.0-100.0); TOTAL PROTEIN 6.3 GM/DL (6.4-8.2)
== END ==
LOC: M SFHCSACK 10:23
PROVIDERS: ATTEND Physician Assistant
DX: I10 Essential (primary) hypertension (principal); E78.2 Mixed hyperlipidemia; E03.9 Hypothyroidism, unspecified; E55.9 Vitamin D deficiency, unspecified

== ENCOUNTER → 2020-02-01 | Outpatient (REF) | payer MEDICARE, OTHER ==
[~2020-02-01] MED LIST changes: -MECL12.575 PO; +MECL12.589 PO
== END ==
LOC: M SFHCSACK 17:09
PROVIDERS: ATTEND Physician Assistant
DX: N39.0 Urinary tract infection, site not specified (principal)
CPT/HCPCS: 81002; 87086; G0463

== ENCOUNTER → 2020-05-12 | Outpatient (REF) | payer MEDICARE, OTHER ==
[2020-05-12 11:22] LABS: BASO % 0.4 % (0.0-1.0); EOS # 0.3 10^3/uL (0.0-0.5); EOS % 2.8 % (0.0-3.0); HEMATOCRIT 38.7 % (36.0-47.0); LYMPH # 1.8 10^3/uL (1.5-5.0); LYMPH % 17.9 % (24.0-44.0); MEAN CORPUSCULAR HEMOGLOBIN 27.8 pg (27.0-33.0); MEAN CORPUSCULAR VOLUME 89.8 fl (80.0-96.0); MONO # 0.6 10^3/uL (0.0-0.8); MONO % 6.1 % (0.0-5.0); NEUTROPHILS # 7.2 10^3/uL (1.5-8.5); NEUTROPHILS % 71.6 % (36.0-66.0); PLATELET COUNT, AUTOMATED 156 10^3/uL (150-450); RED BLOOD COUNT 4.31 10^6/uL (4.00-5.40); WHITE BLOOD COUNT 10.1 10^3/uL (4.0-10.0)
[2020-05-12 11:44] LABS: ALBUMIN 3.5 GM/DL (3.2-5.2); BILIRUBIN,TOTAL 0.7 MG/DL (0.2-1.0); CALCIUM LEVEL 8.6 MG/DL (8.8-10.2); CREATININE FOR GFR 1.47 MG/DL (0.55-1.30); GLOMERULAR FILTRATION RATE 36.3 (>32); POTASSIUM SERUM 5.2 MEQ/L (3.5-5.1); TOTAL PROTEIN 6.4 GM/DL (6.4-8.2)
== END ==
LOC: M SFHCPLAZ 09:44
PROVIDERS: ATTEND Physician Assistant
DX: I10 Essential (primary) hypertension (principal); K21.9 Gastro-esophageal reflux disease without esophagitis
CPT/HCPCS: 36415; 80053; 85025; G0463

== ENCOUNTER → 2021-07-20 | Outpatient (CLI) | payer MEDICARE, OTHER ==
[~2021-07-20] MED LIST changes: +MECL-136 PO; -MECL12.589 PO
[2021-07-20 18:54] LABS: ALBUMIN 3.4 GM/DL (3.2-5.2); BILIRUBIN,TOTAL 0.7 MG/DL (0.2-1.0); CALCIUM LEVEL 8.7 MG/DL (8.8-10.2); CHOLESTEROL RISK RATIO 3.162 (<5); CREATININE FOR GFR 1.68 MG/DL (0.55-1.30); FREE T4 1.37 NG/DL (0.76-1.46); GLOMERULAR FILTRATION RATE 31.1 (>32); POTASSIUM SERUM 5.2 MEQ/L (3.5-5.1); THYROID STIMULATING HORMONE 1.86 uIU/ML (0.358-3.740); TOTAL PROTEIN 6.3 GM/DL (6.4-8.2)
== END ==
LOC: M PLALAB 14:29
PROVIDERS: ATTEND Physician Assistant
DX: E03.9 Hypothyroidism, unspecified (principal); I10 Essential (primary) hypertension; E78.2 Mixed hyperlipidemia
CPT/HCPCS: 36415; 80053; 80061; 84439; 84443; G0463

== ENCOUNTER → 2022-04-11 | Outpatient (CLI) | payer MEDICARE, OTHER ==
[2022-04-11 17:27] LABS: BASO % 0.4 % (0.0-1.0); EOS # 0.2 10^3/uL (0.0-0.5); EOS % 1.9 % (0.0-3.0); HEMATOCRIT 39.9 % (36.0-47.0); HEMOGLOBIN 12.3 g/dl (12.0-15.5); LYMPH # 2.9 10^3/uL (1.5-5.0); LYMPH % 27.4 % (24.0-44.0); MEAN CORPUSCULAR HEMOGLOBIN 28.4 pg (27.0-33.0); MEAN CORPUSCULAR HGB CONC 30.8 g/dl (32.0-36.5); MEAN CORPUSCULAR VOLUME 92.1 fl (80.0-96.0); MONO # 0.7 10^3/uL (0.0-0.8); MONO % 6.1 % (2.0-8.0); NEUTROPHILS # 6.8 10^3/uL (1.5-8.5); NEUTROPHILS % 63.5 % (36.0-66.0); PLATELET COUNT, AUTOMATED 158 10^3/uL (150-450); RED BLOOD COUNT 4.33 10^6/uL (4.00-5.40); WHITE BLOOD COUNT 10.7 10^3/uL (4.0-10.0)
[2022-04-11 17:38] LABS: HEMOGLOBIN A1c 5.2 %
[2022-04-11 17:45] LABS: ALBUMIN 3.7 GM/DL (3.2-5.2); BILIRUBIN,TOTAL 0.9 MG/DL (0.2-1.0); CALCIUM LEVEL 8.6 MG/DL (8.8-10.2); CHOLESTEROL RISK RATIO 3.266 (<5); CREATININE FOR GFR 1.41 MG/DL (0.55-1.30); FREE T4 1.09 NG/DL (0.76-1.46); POTASSIUM SERUM 4.4 MEQ/L (3.5-5.1); PTH INTACT 100.8 PG/ML (18.5-88.0); THYROID STIMULATING HORMONE 8.84 uIU/ML (0.358-3.740); TOTAL 25(OH) VITAMIN D 48.4 NG/ML (30.0-100.0); TOTAL PROTEIN 6.6 GM/DL (6.4-8.2)
== END ==
LOC: M PLALAB 15:34
PROVIDERS: ATTEND Nurse Practitioner Family
DX: E55.9 Vitamin D deficiency, unspecified (principal); I10 Essential (primary) hypertension; E03.9 Hypothyroidism, unspecified; E78.2 Mixed hyperlipidemia; Z79.899 Other long term (current) drug therapy
CPT/HCPCS: 36415; 80053; 80061; 82306; 83036; 83880; 83970; 84439; 84443; 85025; G0463

== ENCOUNTER → 2022-06-27 | Outpatient (CLI) | payer MEDICARE, OTHER ==
[2022-06-27 15:14] LABS: BASO # 0.1 10^3/uL (0.0-0.2); BASO % 0.5 % (0.0-1.0); EOS # 0.2 10^3/uL (0.0-0.5); EOS % 1.3 % (0.0-3.0); HEMATOCRIT 39.1 % (36.0-47.0); LYMPH # 2.6 10^3/uL (1.5-5.0); MEAN CORPUSCULAR HEMOGLOBIN 28.5 pg (27.0-33.0); MEAN CORPUSCULAR HGB CONC 30.7 g/dl (32.0-36.5); MEAN CORPUSCULAR VOLUME 92.9 fl (80.0-96.0); MONO # 0.7 10^3/uL (0.0-0.8); MONO % 5.4 % (2.0-8.0); NEUTROPHILS # 8.7 10^3/uL (1.5-8.5); PLATELET COUNT, AUTOMATED 169 10^3/uL (150-450); RED BLOOD COUNT 4.21 10^6/uL (4.00-5.40); WHITE BLOOD COUNT 12.3 10^3/uL (4.0-10.0)
[2022-06-27 16:15] LABS: ALBUMIN 3.3 GM/DL (3.2-5.2); BILIRUBIN,TOTAL 0.8 MG/DL (0.2-1.0); CALCIUM LEVEL 9.2 MG/DL (8.8-10.2); CREATININE FOR GFR 1.27 MG/DL (0.55-1.30); FREE T4 1.1 NG/DL (0.76-1.46); GLOMERULAR FILTRATION RATE 42.8 (>32); POTASSIUM SERUM 4.4 MEQ/L (3.5-5.1); THYROID STIMULATING HORMONE 5.21 uIU/ML (0.358-3.740); TOTAL PROTEIN 7.2 GM/DL (6.4-8.2)
== END ==
LOC: M PLALAB 12:44
PROVIDERS: ATTEND Nurse Practitioner Family
DX: E03.9 Hypothyroidism, unspecified (principal); I10 Essential (primary) hypertension

== ENCOUNTER → 2022-08-08 | Outpatient (CLI) | payer MEDICARE | LOC: M CARPUL 13:24 | PROVIDERS: ATTEND Nurse Practitioner Family | DX: I10 Essential (primary) hypertension (principal); I34.8 Other nonrheumatic mitral valve disorders ==

== ENCOUNTER → 2022-09-11 | Outpatient (CLI) | payer MEDICARE ==
[2022-09-11 15:37] LABS: BASO # 0.1 10^3/uL (0.0-0.2); BASO % 0.7 % (0.0-1.0); EOS # 0.5 10^3/uL (0.0-0.5); EOS % 5.5 % (0.0-3.0); HEMATOCRIT 37.8 % (36.0-47.0); HEMOGLOBIN 11.8 g/dl (12.0-15.5); LYMPH # 2.1 10^3/uL (1.5-5.0); LYMPH % 22.1 % (24.0-44.0); MEAN CORPUSCULAR HEMOGLOBIN 28.6 pg (27.0-33.0); MEAN CORPUSCULAR HGB CONC 31.2 g/dl (32.0-36.5); MEAN CORPUSCULAR VOLUME 91.5 fl (80.0-96.0); MONO # 0.8 10^3/uL (0.0-0.8); MONO % 8.9 % (2.0-8.0); NEUTROPHILS # 5.8 10^3/uL (1.5-8.5); NEUTROPHILS % 61.6 % (36.0-66.0); PLATELET COUNT, AUTOMATED 165 10^3/uL (150-450); RED BLOOD COUNT 4.13 10^6/uL (4.00-5.40); WHITE BLOOD COUNT 9.5 10^3/uL (4.0-10.0)
[2022-09-11 16:26] LABS: ALBUMIN 3.3 GM/DL (3.2-5.2); BILIRUBIN,TOTAL 0.8 MG/DL (0.2-1.0); CALCIUM LEVEL 8.8 MG/DL (8.8-10.2); CREATININE FOR GFR 1.49 MG/DL (0.55-1.30); GLOMERULAR FILTRATION RATE 35.6 (>32); MAGNESIUM LEVEL 1.9 MG/DL (1.8-2.4); POTASSIUM SERUM 4.8 MEQ/L (3.5-5.1); TOTAL PROTEIN 6.1 GM/DL (6.4-8.2)
== END ==
LOC: M PLALAB 12:44
PROVIDERS: ATTEND Nurse Practitioner Family
DX: I10 Essential (primary) hypertension (principal)

== ENCOUNTER → 2023-02-25 | Outpatient (CLI) | payer MEDICARE, OTHER ==
[2023-02-25 16:18] LABS: BASO # 0.1 10^3/uL (0.0-0.2); BASO % 0.4 % (0.0-1.0); EOS # 0.2 10^3/uL (0.0-0.5); EOS % 1.9 % (0.0-3.0); HEMATOCRIT 41.8 % (36.0-47.0); HEMOGLOBIN 12.9 g/dl (12.0-15.5); LYMPH # 3.2 10^3/uL (1.5-5.0); LYMPH % 26.9 % (24.0-44.0); MEAN CORPUSCULAR HGB CONC 30.9 g/dl (32.0-36.5); MEAN CORPUSCULAR VOLUME 93.9 fl (80.0-96.0); MONO # 0.8 10^3/uL (0.0-0.8); MONO % 6.3 % (2.0-8.0); NEUTROPHILS # 7.7 10^3/uL (1.5-8.5); NEUTROPHILS % 63.9 % (36.0-66.0); PLATELET COUNT, AUTOMATED 169 10^3/uL (150-450); RED BLOOD COUNT 4.45 10^6/uL (4.00-5.40)
[2023-02-25 16:35] LABS: HEMOGLOBIN A1c 5.2 % (4.0-6.0)
[2023-02-25 19:56] LABS: ALBUMIN 3.7 G/DL (3.2-5.2); BILIRUBIN,TOTAL 0.6 MG/DL (0.3-1.2); CALCIUM LEVEL 8.9 MG/DL (8.3-10.6); CHOLESTEROL RISK RATIO 3.65 (<5); CREATININE FOR GFR 1.58 MG/DL (0.55-1.30); FREE T4 1.45 NG/DL (0.89-1.76); GLOMERULAR FILTRATION RATE 33.2 (>32); HDL CHOLESTEROL 39.9 MG/DL (>40); LDL CHOLESTEROL 78.3 MG/DL (<100); NON-HDL-C 106.1 MG/DL; POTASSIUM SERUM 4.9 MMOL/L (3.5-5.1); THYROID STIMULATING HORMONE 0.81 uIU/ML (0.55-4.78); TOTAL 25(OH) VITAMIN D 67.5 NG/ML (20.0-100.0); TOTAL PROTEIN 6.4 G/DL (5.7-8.2)
== END ==
LOC: M PLALAB 11:45
PROVIDERS: ATTEND Nurse Practitioner Family
DX: E78.2 Mixed hyperlipidemia (principal); I11.0 Hypertensive heart disease with heart failure; E55.9 Vitamin D deficiency, unspecified; I50.30 Unspecified diastolic (congestive) heart failure; Z79.899 Other long term (current) drug therapy

== ENCOUNTER → 2023-07-08 | Outpatient (CLI) | payer MEDICARE ==
[2023-07-08 15:34] LABS: BASO # 0.1 10^3/uL (0.0-0.2); BASO % 0.5 % (0.0-1.0); EOS # 0.3 10^3/uL (0.0-0.5); EOS % 2.1 % (0.0-3.0); HEMOGLOBIN 12.1 g/dl (12.0-15.5); LYMPH # 3.2 10^3/uL (1.5-5.0); LYMPH % 25.4 % (24.0-44.0); MEAN CORPUSCULAR HEMOGLOBIN 29.1 pg (27.0-33.0); MEAN CORPUSCULAR VOLUME 93.8 fl (80.0-96.0); MONO # 0.8 10^3/uL (0.0-0.8); MONO % 6.7 % (2.0-8.0); NEUTROPHILS # 8.1 10^3/uL (1.5-8.5); NEUTROPHILS % 64.3 % (36.0-66.0); PLATELET COUNT, AUTOMATED 180 10^3/uL (150-450); RED BLOOD COUNT 4.16 10^6/uL (4.00-5.40); WHITE BLOOD COUNT 12.6 10^3/uL (4.0-10.0)
[2023-07-08 16:04] LABS: ALBUMIN 3.4 G/DL (3.2-5.2); ALKALINE PHOSPHATASE 107 U/L (46-116); ALT/SGPT < 9 U/L (7.0-40); AST/SGOT < 8 U/L (<34); BILIRUBIN,TOTAL 0.8 MG/DL (0.3-1.2); BLOOD UREA NITROGEN 22 MG/DL (9-23); CALCIUM LEVEL 9.2 MG/DL (8.3-10.6); CARBON DIOXIDE LEVEL 25 MMOL/L (20-31); CHLORIDE LEVEL 109 MMOL/L (98-107); CHOLESTEROL LEVEL 133 MG/DL (<200); CHOLESTEROL RISK RATIO 3.78 (<5); CREATININE FOR GFR 1.58 MG/DL (0.55-1.30); GLOMERULAR FILTRATION RATE 33.2 (>32); GLUCOSE, FASTING 93 MG/DL (74-106); HDL CHOLESTEROL 35.1 MG/DL (>40); LDL CHOLESTEROL 65.7 MG/DL (<100); NON-HDL-C 97.9 MG/DL; POTASSIUM SERUM 4.8 MMOL/L (3.5-5.1); SODIUM LEVEL 143 MMOL/L (136-145); TOTAL PROTEIN 6.1 G/DL (5.7-8.2); TRIGLYCERIDES LEVEL 161 MG/DL (<150)
[2023-07-08 16:06] LABS: FREE T4 1.47 NG/DL (0.89-1.76); TOTAL 25(OH) VITAMIN D 64.1 NG/ML (20.0-100.0)
[2023-07-08 18:11] LABS: HEMOGLOBIN A1c 5.7 % (4.0-6.0)
[2023-07-08 18:52] LABS: APPEARANCE, URINE TURBID (CLEAR); BACTERIA, URINE AUTO 3+ (NEGATIVE); BILIRUBIN, URINE AUTO 1+ (NEGATIVE); BLOOD, URINE BLOOD 2+ (NEGATIVE); COLOR, URINE AMBER (YELLOW); GLUCOSE, URINE (UA) AUTO NEGATIVE (NEGATIVE); KETONE, URINE AUTO NEGATIVE (NEGATIVE); LEUKOCYTE ESTERASE, URINE AUTO 2+ (NEGATIVE); MUCUS, URINE SMALL (NEGATIVE); NITRITE, URINE AUTO NEGATIVE (NEGATIVE); PROTEIN, URINE AUTO NEGATIVE (NEGATIVE); RBC, URINE AUTO 6 /HPF (0-3); SPECIFIC GRAVITY URINE AUTO 1.008 (1.002-1.035); SQUAMOUS EPITHELIAL CELL UR AU 3 /HPF (0-6); WBC, URINE AUTO 53 /HPF (0-3)
== END ==
LOC: M PLALAB 14:28
PROVIDERS: ATTEND Nurse Practitioner Family
DX: E78.2 Mixed hyperlipidemia (principal); I10 Essential (primary) hypertension; E03.9 Hypothyroidism, unspecified; E55.9 Vitamin D deficiency, unspecified; Z79.899 Other long term (current) drug therapy

== ENCOUNTER → 2024-01-14 | Outpatient (CLI) | payer MEDICARE, MEDICAID ==
[2024-01-14 14:37] LABS: APPEARANCE, URINE TURBID (CLEAR); BACTERIA, URINE AUTO 3+ (NEGATIVE); BILIRUBIN, URINE AUTO NEGATIVE (NEGATIVE); BLOOD, URINE BLOOD 2+ (NEGATIVE); CALCIUM OXALATE CRYSTALS SMALL; COLOR, URINE AMBER (YELLOW); GLUCOSE, URINE (UA) AUTO NEGATIVE (NEGATIVE); KETONE, URINE AUTO NEGATIVE (NEGATIVE); LEUKOCYTE ESTERASE, URINE AUTO 3+ (NEGATIVE); MUCUS, URINE LARGE (NEGATIVE); NITRITE, URINE AUTO NEGATIVE (NEGATIVE); PROTEIN, URINE AUTO 2+ mg/dL (NEGATIVE); RBC, URINE AUTO 27 /HPF (0-3); SQUAMOUS EPITHELIAL CELL UR AU 5 /HPF (0-6); WBC, URINE AUTO TNTC /HPF (0-3)
[2024-01-14 15:58] LABS: ALBUMIN 3.4 G/DL (3.2-5.2); ALKALINE PHOSPHATASE 94 U/L (46-116); ALT/SGPT < 9 U/L (7.0-40); AST/SGOT 10 U/L (<34); BILIRUBIN,TOTAL 0.5 MG/DL (0.3-1.2); BLOOD UREA NITROGEN 26 MG/DL (9-23); CALCIUM LEVEL 8.9 MG/DL (8.3-10.6); CARBON DIOXIDE LEVEL 27 MMOL/L (20-31); CHLORIDE LEVEL 112 MMOL/L (98-107); CREATININE FOR GFR 1.43 MG/DL (0.55-1.30); GLOMERULAR FILTRATION RATE 37.2 (>32); GLUCOSE, FASTING 100 MG/DL (74-106); POTASSIUM SERUM 5.3 MMOL/L (3.5-5.1); SODIUM LEVEL 144 MMOL/L (136-145)
[2024-01-14 16:02] LABS: HEMOGLOBIN A1c 5.1 % (4.0-6.0)
[2024-01-14 16:04] LABS: BASO # 0.1 10^3/uL (0.0-0.2); BASO % 0.6 % (0.0-1.0); EOS # 0.2 10^3/uL (0.0-0.5); EOS % 1.8 % (0.0-3.0); HEMOGLOBIN 12.4 g/dl (12.0-15.5); LYMPH # 2.7 10^3/uL (1.5-5.0); MEAN CORPUSCULAR HEMOGLOBIN 29.7 pg (27.0-33.0); MEAN CORPUSCULAR VOLUME 95.9 fl (80.0-96.0); MONO # 0.7 10^3/uL (0.0-0.8); MONO % 6.4 % (2.0-8.0); NEUTROPHILS # 6.6 10^3/uL (1.5-8.5); NEUTROPHILS % 63.9 % (36.0-66.0); PLATELET COUNT, AUTOMATED 157 10^3/uL (150-450); RED BLOOD COUNT 4.17 10^6/uL (4.00-5.40); WHITE BLOOD COUNT 10.3 10^3/uL (4.0-10.0)
== END ==
LOC: M PLALAB 12:14
PROVIDERS: ATTEND Physician Assistant Medical
DX: N82.3 Fistula of vagina to large intestine (principal); R30.0 Dysuria; R35.0 Frequency of micturition; Z79.899 Other long term (current) drug therapy; Z12.4 Encounter for screening for malignant neoplasm of cervix
CPT/HCPCS: 36415; 80053; 81001; 83036; 85025; 87086; G0123

== ENCOUNTER → 2024-02-03 | Outpatient (REF) | payer MEDICARE, MEDICAID | LOC: M SMT 13:09 | PROVIDERS: ATTEND Nurse Practitioner Family | DX: N39.0 Urinary tract infection, site not specified (principal) ==

== ENCOUNTER → 2024-02-11 | Outpatient (CLI) | payer MEDICARE, MEDICAID ==
[2024-02-11 15:59] LABS: BASO # 0.1 10^3/uL (0.0-0.2); BASO % 0.5 % (0.0-1.0); EOS # 0.3 10^3/uL (0.0-0.5); EOS % 1.9 % (0.0-3.0); HEMATOCRIT 41.8 % (36.0-47.0); HEMOGLOBIN 12.8 g/dl (12.0-15.5); LYMPH # 3.7 10^3/uL (1.5-5.0); LYMPH % 28.4 % (24.0-44.0); MEAN CORPUSCULAR HEMOGLOBIN 29.4 pg (27.0-33.0); MEAN CORPUSCULAR HGB CONC 30.6 g/dl (32.0-36.5); MEAN CORPUSCULAR VOLUME 96.1 fl (80.0-96.0); MONO # 0.8 10^3/uL (0.0-0.8); NEUTROPHILS % 62.2 % (36.0-66.0); PLATELET COUNT, AUTOMATED 170 10^3/uL (150-450); RED BLOOD COUNT 4.35 10^6/uL (4.00-5.40); WHITE BLOOD COUNT 12.9 10^3/uL (4.0-10.0)
[2024-02-11 16:33] LABS: FREE T4 1.46 NG/DL (0.89-1.76); THYROID STIMULATING HORMONE 3.838 uIU/ML (0.55-4.78)
[2024-02-11 16:35] LABS: TOTAL 25(OH) VITAMIN D 52.8 NG/ML (20.0-100.0)
[2024-02-11 16:38] LABS: ALBUMIN 3.7 G/DL (3.2-5.2); ALKALINE PHOSPHATASE 95 U/L (46-116); ALT/SGPT < 9 U/L (7.0-40); AST/SGOT 10 U/L (<34); BLOOD UREA NITROGEN 39 MG/DL (9-23); CALCIUM LEVEL 9.1 MG/DL (8.3-10.6); CARBON DIOXIDE LEVEL 26 MMOL/L (20-31); CHLORIDE LEVEL 110 MMOL/L (98-107); CHOLESTEROL LEVEL 143 MG/DL (<200); CHOLESTEROL RISK RATIO 4.68 (<5); CREATININE FOR GFR 2.18 MG/DL (0.55-1.30); GLOMERULAR FILTRATION RATE 22.9 (>32); GLUCOSE, FASTING 99 MG/DL (74-106); HDL CHOLESTEROL 30.5 MG/DL (>40); LDL CHOLESTEROL 68.3 MG/DL (<100); NON-HDL-C 112.5 MG/DL; POTASSIUM SERUM 4.9 MMOL/L (3.5-5.1); SODIUM LEVEL 142 MMOL/L (136-145); TOTAL PROTEIN 6.2 G/DL (5.7-8.2); TRIGLYCERIDES LEVEL 221 MG/DL (<150)
[2024-02-11 16:53] LABS: BILIRUBIN,TOTAL 0.5 MG/DL (0.3-1.2)
== END ==
LOC: M PLALAB 13:58
PROVIDERS: ATTEND Nurse Practitioner Family
DX: E78.2 Mixed hyperlipidemia (principal); I11.0 Hypertensive heart disease with heart failure; E55.9 Vitamin D deficiency, unspecified; I50.30 Unspecified diastolic (congestive) heart failure; E03.9 Hypothyroidism, unspecified

== ENCOUNTER → 2024-02-18 | Outpatient (CLI) | payer MEDICARE, MEDICAID ==
[2024-02-18 15:31] LABS: BASO # 0.1 10^3/uL (0.0-0.2); BASO % 0.5 % (0.0-1.0); EOS # 0.2 10^3/uL (0.0-0.5); EOS % 1.7 % (0.0-3.0); HEMATOCRIT 38.1 % (36.0-47.0); HEMOGLOBIN 11.9 g/dl (12.0-15.5); LYMPH # 3.5 10^3/uL (1.5-5.0); LYMPH % 32.8 % (24.0-44.0); MEAN CORPUSCULAR HEMOGLOBIN 29.7 pg (27.0-33.0); MEAN CORPUSCULAR HGB CONC 31.2 g/dl (32.0-36.5); MONO # 0.6 10^3/uL (0.0-0.8); MONO % 6.1 % (2.0-8.0); NEUTROPHILS # 6.2 10^3/uL (1.5-8.5); NEUTROPHILS % 58.1 % (36.0-66.0); PLATELET COUNT, AUTOMATED 155 10^3/uL (150-450); RED BLOOD COUNT 4.01 10^6/uL (4.00-5.40); WHITE BLOOD COUNT 10.6 10^3/uL (4.0-10.0)
[2024-02-18 15:41] LABS: ALBUMIN 3.3 G/DL (3.2-5.2); CALCIUM LEVEL 9.1 MG/DL (8.3-10.6); CREATININE FOR GFR 1.4 MG/DL (0.55-1.30); GLOMERULAR FILTRATION RATE 38.1 (>32); PHOSPHORUS LEVEL 3.9 MG/DL (2.4-5.1); POTASSIUM SERUM 5.2 MMOL/L (3.5-5.1)
== END ==
LOC: M PLALAB 12:28
PROVIDERS: ATTEND Nurse Practitioner Family
DX: N18.31 Chronic kidney disease, stage 3a (principal); D72.829 Elevated white blood cell count, unspecified; R39.9 Unspecified symptoms and signs involving the genitourinary system

== ENCOUNTER → 2024-02-20 | Outpatient (REF) | payer MEDICARE, MEDICAID | LOC: M SFHCPLAZ 15:08 | PROVIDERS: ATTEND Nurse Practitioner Family | DX: R39.9 Unspecified symptoms and signs involving the genitourinary system (principal) ==

== ENCOUNTER → 2024-03-13 | Outpatient (CLI) | payer MEDICARE, MEDICAID | LOC: M WHC 13:01 | PROVIDERS: ATTEND Nurse Practitioner Family | DX: N39.0 Urinary tract infection, site not specified (principal) ==

== ENCOUNTER → 2024-06-16 | Outpatient (CLI) | payer MEDICARE ==
[2024-06-16 18:25] LABS: BASO # 0.1 10^3/uL (0.0-0.2); BASO % 0.5 % (0.0-1.0); EOS # 0.3 10^3/uL (0.0-0.5); EOS % 2.6 % (0.0-3.0); HEMATOCRIT 38.1 % (36.0-47.0); HEMOGLOBIN 11.9 g/dl (12.0-15.5); LYMPH # 3.7 10^3/uL (1.5-5.0); LYMPH % 34.1 % (24.0-44.0); MEAN CORPUSCULAR HEMOGLOBIN 29.5 pg (27.0-33.0); MEAN CORPUSCULAR HGB CONC 31.2 g/dl (32.0-36.5); MEAN CORPUSCULAR VOLUME 94.3 fl (80.0-96.0); MONO # 0.8 10^3/uL (0.0-0.8); MONO % 7.1 % (2.0-8.0); PLATELET COUNT, AUTOMATED 172 10^3/uL (150-450); RED BLOOD COUNT 4.04 10^6/uL (4.00-5.40); WHITE BLOOD COUNT 10.9 10^3/uL (4.0-10.0)
[2024-06-16 18:43] LABS: THYROID STIMULATING HORMONE 1.586 uIU/ML (0.55-4.78)
[2024-06-16 18:44] LABS: ALBUMIN 3.6 G/DL (3.2-5.2); BILIRUBIN,TOTAL 0.6 MG/DL (0.3-1.2); CALCIUM LEVEL 9.2 MG/DL (8.3-10.6); CHOLESTEROL RISK RATIO 3.36 (<5); CREATININE FOR GFR 1.87 MG/DL (0.55-1.30); FREE T4 1.44 NG/DL (0.89-1.76); GLOMERULAR FILTRATION RATE 27.2 (>32); HDL CHOLESTEROL 36.5 MG/DL (>40); LDL CHOLESTEROL 55.5 MG/DL (<100); NON-HDL-C 86.5 MG/DL; POTASSIUM SERUM 4.8 MMOL/L (3.5-5.1)
== END ==
LOC: M PLALAB 14:34
PROVIDERS: ATTEND Nurse Practitioner Family
DX: E78.2 Mixed hyperlipidemia (principal); I11.0 Hypertensive heart disease with heart failure; E55.9 Vitamin D deficiency, unspecified; I50.30 Unspecified diastolic (congestive) heart failure; E03.9 Hypothyroidism, unspecified

== ENCOUNTER → 2024-07-01 | Outpatient (CLI) | payer MEDICAID, MEDICARE | LOC: M RAD 09:14 | PROVIDERS: ATTEND Internal Medicine Nephrology | DX: I70.1 Atherosclerosis of renal artery (principal) ==

== ENCOUNTER → 2024-10-05 | Outpatient (CLI) | payer MEDICARE ==
[2024-10-05 19:17] LABS: ALBUMIN 3.5 G/DL (3.2-5.2); BILIRUBIN,TOTAL 0.6 MG/DL (0.3-1.2); CALCIUM LEVEL 9.3 MG/DL (8.3-10.6); CHOLESTEROL RISK RATIO 4.12 (<5); CREATININE FOR GFR 1.74 MG/DL (0.55-1.30); GLOMERULAR FILTRATION RATE 29.6 (>32); HDL CHOLESTEROL 36.1 MG/DL (>40); LDL CHOLESTEROL 75.5 MG/DL (<100); MAGNESIUM LEVEL 2.1 MG/DL (1.8-2.4); NON-HDL-C 112.9 MG/DL; POTASSIUM SERUM 4.7 MMOL/L (3.5-5.1); TOTAL PROTEIN 6.6 G/DL (5.7-8.2)
[2024-10-05 19:18] LABS: THYROID STIMULATING HORMONE 0.675 uIU/ML (0.55-4.78)
[2024-10-05 19:19] LABS: FREE T4 1.61 NG/DL (0.89-1.76)
== END ==
LOC: M PLALAB 14:01
PROVIDERS: ATTEND Nurse Practitioner Family
DX: I10 Essential (primary) hypertension (principal); E78.5 Hyperlipidemia, unspecified; E55.9 Vitamin D deficiency, unspecified; E03.9 Hypothyroidism, unspecified

== ENCOUNTER → 2025-01-19 | Outpatient (CLI) | payer MEDICARE | LOC: M PLAIMG 12:25 | PROVIDERS: ATTEND Physician Assistant Medical | DX: M54.2 Cervicalgia (principal); M54.50 Low back pain, unspecified; M54.9 Dorsalgia, unspecified; M47.819 Spondylosis without myelopathy or radiculopathy, site unspecified ==

== ENCOUNTER → 2025-01-25 | Outpatient (REF) | payer MEDICARE | LOC: M LAB REF 13:06 | PROVIDERS: ATTEND Internal Medicine Nephrology | DX: N39.0 Urinary tract infection, site not specified (principal) ==

== ENCOUNTER → 2025-02-03 | Outpatient (CLI) | payer MEDICARE | LOC: M WHC 13:58 | PROVIDERS: ATTEND Physician Assistant Medical | DX: Z13.820 Encounter for screening for osteoporosis (principal); M85.851 Other specified disorders of bone density and structure, right thigh; M85.852 Other specified disorders of bone density and structure, left thigh; Z91.89 Other specified personal risk factors, not elsewhere classified ==

== ENCOUNTER → 2025-03-23 | Outpatient (CLI) | payer MEDICARE ==
[~2025-03-23] MED LIST changes: -AMBI5TAB PO; +ZOLP-532 PO
[2025-03-23 18:55] LABS: BASO # 0.1 10^3/uL (0.0-0.2); BASO % 0.7 % (0.0-1.0); EOS # 0.2 10^3/uL (0.0-0.5); EOS % 1.3 % (0.0-3.0); HEMATOCRIT 35.8 % (36.0-47.0); HEMOGLOBIN 10.7 g/dl (12.0-15.5); LYMPH # 3.7 10^3/uL (1.5-5.0); LYMPH % 27.3 % (24.0-44.0); MEAN CORPUSCULAR HEMOGLOBIN 29.1 pg (27.0-33.0); MEAN CORPUSCULAR HGB CONC 29.9 g/dl (32.0-36.5); MEAN CORPUSCULAR VOLUME 97.3 fl (80.0-96.0); MONO # 0.8 10^3/uL (0.0-0.8); MONO % 5.5 % (2.0-8.0); NEUTROPHILS # 8.6 10^3/uL (1.5-8.5); PLATELET COUNT, AUTOMATED 201 10^3/uL (150-450); RED BLOOD COUNT 3.68 10^6/uL (4.00-5.40); WHITE BLOOD COUNT 13.6 10^3/uL (4.0-10.0)
[2025-03-23 19:23] LABS: FREE T4 1.6 NG/DL (0.89-1.76); THYROID STIMULATING HORMONE 0.913 uIU/ML (0.55-4.78)
[2025-03-23 19:24] LABS: TOTAL 25(OH) VITAMIN D 70.9 NG/ML (20.0-100.0)
[2025-03-23 19:26] LABS: ALBUMIN 3.5 G/DL (3.2-5.2); BILIRUBIN,TOTAL 0.7 MG/DL (0.3-1.2); CALCIUM LEVEL 9.1 MG/DL (8.3-10.6); CHOLESTEROL RISK RATIO 4.31 (<5); CREATININE FOR GFR 1.67 MG/DL (0.55-1.30); GLOMERULAR FILTRATION RATE 29.8 (>32); HDL CHOLESTEROL 34.3 MG/DL (>40); LDL CHOLESTEROL 75.3 MG/DL (<100); MAGNESIUM LEVEL 1.8 MG/DL (1.8-2.4); NON-HDL-C 113.7 MG/DL; TOTAL PROTEIN 6.1 G/DL (5.7-8.2)
== END ==
LOC: M PLALAB 16:08
PROVIDERS: ATTEND Nurse Practitioner Family
DX: I10 Essential (primary) hypertension (principal); E55.9 Vitamin D deficiency, unspecified; E78.2 Mixed hyperlipidemia; E03.9 Hypothyroidism, unspecified

== ENCOUNTER → 2025-07-12 | Outpatient (CLI) | payer MEDICARE ==
[2025-07-12 17:35] LABS: BASO # 0.0 10^3/uL (0.0-0.2); BASO % 0.4 % (0.0-1.0); EOS # 0.0 10^3/uL (0.0-0.5); EOS % 0.0 % (0.0-3.0); LYMPH # 2.2 10^3/uL (1.5-5.0); LYMPH % 29.3 % (24.0-44.0); MONO # 0.8 10^3/uL (0.0-0.8); MONO % 10.5 % (2.0-8.0); NEUTROPHILS # 4.5 10^3/uL (1.5-8.5); NEUTROPHILS % 59.4 % (36.0-66.0); PLATELET COUNT, AUTOMATED 137 10^3/uL (150-450)
[2025-07-12 17:58] LABS: ALT/SGPT 21.0 U/L (7.0-40); AST/SGOT 27.0 U/L (<34); CALCIUM LEVEL 9.8 MG/DL (8.3-10.6); CARBON DIOXIDE LEVEL 25.0 MMOL/L (20-31); CHLORIDE LEVEL 112.0 MMOL/L (98-107); CHOLESTEROL LEVEL 169.0 MG/DL (<200); CHOLESTEROL RISK RATIO 4.89 (<5); CREATININE FOR GFR 2.15 MG/DL (0.55-1.30); GLOMERULAR FILTRATION RATE 21.9 (>32); LDL CHOLESTEROL 96.5 MG/DL (<100); MAGNESIUM LEVEL 1.8 MG/DL (1.8-2.4); NON-HDL-C 134.5 MG/DL; POTASSIUM SERUM 5.0 MMOL/L (3.5-5.1); SODIUM LEVEL 148.0 MMOL/L (136-145); TRIGLYCERIDES LEVEL 190.0 MG/DL (<150)
[2025-07-12 18:00] LABS: FREE T4 1.1 NG/DL (0.89-1.76)
== END ==
LOC: M PLALAB 15:19
PROVIDERS: ATTEND Nurse Practitioner Family
DX: I11.0 Hypertensive heart disease with heart failure (principal); I50.30 Unspecified diastolic (congestive) heart failure; E78.2 Mixed hyperlipidemia; E03.9 Hypothyroidism, unspecified

== ENCOUNTER → 2025-09-23 | Outpatient (REF) | payer MEDICARE ==
[2025-09-23 18:43] LABS: IRON (FE) 52.0 UG/DL (50-170); PERCENT SATURATION 16.5 % (13.2-45.0)
== END ==
LOC: M LAB REF 17:31
PROVIDERS: ATTEND Internal Medicine Nephrology
DX: D50.9 Iron deficiency anemia, unspecified (principal)

== ENCOUNTER → 2025-09-23 | Outpatient (CLI) | payer MEDICARE | LOC: M PLAIMG 12:43 | PROVIDERS: ATTEND Physician Assistant | DX: I50.32 Chronic diastolic (congestive) heart failure (principal); I35.8 Other nonrheumatic aortic valve disorders; I11.0 Hypertensive heart disease with heart failure; D50.9 Iron deficiency anemia, unspecified ==